=== PATIENT | male | born 1955 | race Caucasian/White ===

== ENCOUNTER → 2017-05-06 | Outpatient (CLI) | payer BC | END | disposition home or self-care (01) | LOC: LABPAT 16:41 | PROVIDERS: ATTEND Anesthesiology | DX: Z01.818 Encounter for other preprocedural examination (principal); R00.1 Bradycardia, unspecified | CPT/HCPCS: 36415; 86850; 86900; 86901; 93005 ==

== ENCOUNTER 2017-05-11 09:55 | Day surgery (SDC) | payer BC, OTHER ==
[2017-05-06 22:59] VITALS: BMI 27.1
[~2017-05-11 09:55] MED LIST: LACTATED RINGERS 1,000 ML IV SCH; LIDOCAINE 1% 20 ML VIAL (10MG/ML) FOR IV START INTRADERMA PRN
[2017-05-11] MEDS ORDERED: LIDOCAINE 1% 20 ML VIAL (10MG/ML) FOR IV START INTRADERMA ONE (10:15)
[2017-05-11 10:16] VITALS: TEMP 99.2
[2017-05-11] MEDS ORDERED: PROPOFOL 10 MG/ML 20 ML VIAL IV ONE (11:15)
--- NOTE | 2017-05-11 11:21 | P.GSHP ---
History of Present Illness H&P Date: 05/11/17 Chief Complaint: History of colon polyp This is a 61-year-old male referred from Dr. gresham. Patient is a safer colonoscopy. He's had a previous history of colon polyps. Past Medical History Past Medical History: Skin Disorder Additional Past Medical History / Comment(s): bleeding peptic ulcer, STATES BENIGN GROWTH IN COLON History of Any Multi-Drug Resistant Organisms: None Reported Past Surgical History: Cholecystectomy Additional Past Surgical History / Comment(s): colonoscopy, UPPER ENDOSCOPY WITH ULTRASOUND, RT COLECTOMY/HERNIA REPAIR Past Anesthesia/Blood Transfusion Reactions: No Reported Reaction Additional Past Anesthesia/Blood Transfusion Reaction / Comment(s): . Smoking Status: Never smoker - Past Family History Mother Family Medical History: Cancer Additional Family Medical History / Comment(s): CA: breast Father Family Medical History: Cancer Additional Family Medical History / Comment(s): CA: colon Medications and Allergies Home Medications Medication Instructions Recorded Confirmed Type [id number] [id number] 1 each PO Q4HR PRN 05/05/17 05/11/17 History [Excedrin] Allergies Allergy/AdvReac Type Severity Reaction Status Date / Time No Known Allergies Allergy Verified 05/05/17 10:03 Surgical - Exam Vital Signs Temp Pulse Resp BP Pulse Ox 99.2 F 79 16 154/91 96 05/11/17 10:15 05/11/17 10:15 05/11/17 10:15 05/11/17 10:15 05/11/17 10:15 - General well developed, no distress - Eyes PERRL - ENT normal pinna - Neck no masses - Respiratory normal expansion - Abdomen Abdomen: soft, non tender Assessment and Plan Assessment: History: Positive. We'll perform colonoscopy.
--- NOTE | 2017-05-11 11:33 | P.OP ---
Date of Procedure: 05/11/17 Preoperative Diagnosis: History of colon Polyps Postoperative Diagnosis: Transverse colon polyp Diverticulosis Procedure(s) Performed: colonoscopy Anesthesia: MAC Surgeon: Grayson Nuñez Pathology: other (Transverse colon polyp) Condition: stable Disposition: PACU Description of Procedure: The patient's placed on the endoscopy table in the lateral position. He received IV sedation. Digital rectal exam was performed which revealed no abnormalities. The flexible colonoscope was then placed patient anus and passed throughout the entire colon. The ileocecal valve was visualized. The cecum, ascending appeared normal. In the transverse colon was a small sessile polyp was removed with a cold forcep. Scope was then brought back to the descending colon and there was mild diverticular changes seen. There is mild diverticular changes seen in the sigmoid colon the scope was then brought back the rectum and this appeared normal. Scope was withdrawn for patient.
[2017-05-11 11:52] VITALS: BP 114/68; PULSE 63; RESP 16
== END 2017-05-11 12:19 | disposition home or self-care (01) ==
LOC: ORWHC2ENDO 09:55
PROVIDERS: ATTEND Surgery
DX: Z12.11 Encounter for screening for malignant neoplasm of colon (principal); K63.5 Polyp of colon; Z86.010 Personal history of colon polyps; Z90.49 Acquired absence of other specified parts of digestive tract
CPT/HCPCS: 88305; 45380; J2704

== ENCOUNTER 2017-05-13 10:08 | Day surgery (SDC) | payer BC, OTHER ==
[2017-05-06 23:00] VITALS: BMI 27.1
[~2017-05-13 10:08] MED LIST changes: +DEXAMETHASONE SOD PHOSPHATE 10 MG/ML 1 ML VIAL IV ONE; +HEPARIN SODIUM,PORCINE 5,000 UNIT/ML 1 ML VIAL SQ ONE; -LIDOCAINE 1% 20 ML VIAL (10MG/ML) FOR IV START INTRADERMA PRN; +MIDAZOLAM 2 MG/2 ML VIAL IV PRN; +ONDANSETRON 4 MG/2 ML VIAL IVP ONE; +ceFAZolin IN SWFI 2 GM/20 ML SYRINGE IVP ONE
[2017-05-13] MEDS ORDERED: LIDOCAINE 1% 20 ML VIAL (10MG/ML) FOR IV START INTRADERMA ONE (11:12)
--- NOTE | 2017-05-13 11:46 | P.GSHP ---
History of Present Illness H&P Date: 05/13/17 Chief Complaint: Incisional hernia This is a 61-year-old male who's had previous history of right colectomy. Patient presents today for laparoscopic robotic repair of incisional hernia. She has developed an incisional hernia at his midline incision. Past Medical History Past Medical History: Skin Disorder Additional Past Medical History / Comment(s): bleeding peptic ulcer, STATES BENIGN GROWTH IN COLON History of Any Multi-Drug Resistant Organisms: None Reported Past Surgical History: Cholecystectomy Additional Past Surgical History / Comment(s): colonoscopy, UPPER ENDOSCOPY WITH ULTRASOUND, RT COLECTOMY/HERNIA REPAIR Past Anesthesia/Blood Transfusion Reactions: No Reported Reaction Additional Past Anesthesia/Blood Transfusion Reaction / Comment(s): . Smoking Status: Never smoker - Past Family History Mother Family Medical History: Cancer Additional Family Medical History / Comment(s): CA: breast Father Family Medical History: Cancer Additional Family Medical History / Comment(s): CA: colon Medications and Allergies Home Medications Medication Instructions Recorded Confirmed Type [id number] 1 each PO Q4HR PRN 05/05/17 05/11/17 History [Excedrin] Allergies Allergy/AdvReac Type Severity Reaction Status Date / Time No Known Allergies Allergy Verified 05/05/17 10:03 Surgical - Exam Vital Signs Temp Pulse Resp BP Pulse Ox 98.6 F 76 16 142/91 97 05/13/17 11:04 05/13/17 11:04 05/13/17 11:04 05/13/17 11:04 05/13/17 11:04 - General well developed, no distress - Eyes PERRL - ENT normal pinna - Neck no masses - Respiratory normal expansion - Cardiovascular Rhythm: regular - Abdomen Abdomen: soft, non tender Hernia: incisional (Reducible, 5 cm) Assessment and Plan Assessment: Incisional hernia. We'll perform laparoscopic robotic-assisted repair.
[2017-05-13] MEDS ORDERED: fentaNYL (PF) 50 MCG/ML 2 ML AMP ONE (12:16)
[2017-05-13] MEDS ORDERED: GLYCOPYRROLATE 0.2 MG/ML 2 ML VIAL ONE (12:16)
[2017-05-13] MEDS ORDERED: ROCURONIUM BROMIDE 10 MG/ML 10 ML VIAL IV ONE (12:16)
[2017-05-13] MEDS ORDERED: MIDAZOLAM 2 MG/2 ML VIAL ONE (12:16)
[2017-05-13] MEDS ORDERED: ONDANSETRON 4 MG/2 ML VIAL ONE (12:16)
[2017-05-13] MEDS ORDERED: NEOSTIGMINE 1 MG/ML 10 ML VIAL ONE (12:16)
[2017-05-13] MEDS ORDERED: SUCCINYLCHOLINE CHLORIDE VIAL 200 MG/10 ML VIAL IV ONE (12:16)
[2017-05-13] MEDS ORDERED: ePHEDrine SULFATE/0.9% NACL/PF 50 MG/5 ML SYRINGE IV ONE (12:16)
[2017-05-13] MEDS ORDERED: PROPOFOL 10 MG/ML 20 ML VIAL IV ONE (12:16)
[2017-05-13] MEDS ORDERED: LIDOCAINE 1% INJ 10MG/ML (20 ML MDV) ONE (12:16)
[2017-05-13] MEDS ORDERED: HYDROmorphone (PF) 1 MG/ML ONE (12:16)
[2017-05-13] MEDS ORDERED: KETOROLAC 30 MG/ML 1 ML VIAL ONE (12:16)
[2017-05-13] MEDS ORDERED: BUPIVACAINE (PF) 0.25% 30 ML VIAL SQ ONE (12:56)
[2017-05-13 13:58] VITALS: TEMP 97.1
[2017-05-13] MEDS: HYDROmorphone 0.5 MG/0.5 ML SYRINGE IVP PRN ×2 (14:01→14:07)
--- NOTE | 2017-05-13 14:14 | P.OP ---
Date of Procedure: 05/13/17 Preoperative Diagnosis: Incisional hernia Postoperative Diagnosis: Incisional hernia Procedure(s) Performed: Laparoscopic robotic system repair of incisional hernia Anesthesia: SARAH Surgeon: Grayson Nuñez Estimated Blood Loss (ml): 5 Pathology: none sent Condition: stable Disposition: PACU Description of Procedure: Patient's placed on the endoscopy table in the lateral position. He received IV sedation. The patient received general anesthesia. His then placed on the operative table in the supine position. His abdomen was prepped and draped usual fashion. The patient incisional hernia located above the umbilicus. Next a 5 mm optical trocar was placed into the. Cavity in the left upper quadrant and then another 8 mm robotic trochars placed left lower quadrant and a 12 mm trocar was placed left lateral position the original 5 mm trocar was exchanged for an 8 mm robotic trocar. The patient's placed in the left side up position. Patient was undocked the robot. The hernia was visualized. The hernia was closed withoh strata fixed suture. the repair was then repaired lows with oh the lock suture. Next a 10 x 15 mesh was secured over top apparent secured with 2 OV lock suture. At this point it was noted that the fenestrated grasper was broken. The graspers removed. The piece the jaw was removed. The patient was undocked the robot. The needles were then withdrawn. And then the 12 mm trocar site was closed with 0 Ethibond suture. Skin was closed interrupted 3-0 Monocryl suture. Dermabond was applied. Patient tolerated the procedur well and sent to recovery room.
[2017-05-13 14:43] VITALS: RESP 16
[2017-05-13] MEDS ORDERED: HYDROcodone/APAP 7.5-325MG 1 EACH TAB PO ONE (15:10)
[2017-05-13 15:49] VITALS: BP 143/88; PULSE 84
== END 2017-05-13 17:34 | disposition home or self-care (01) ==
LOC: OR 10:08
PROVIDERS: ATTEND Surgery
DX: K43.2 Incisional hernia without obstruction or gangrene (principal); Z90.49 Acquired absence of other specified parts of digestive tract; Z87.11 Personal history of peptic ulcer disease; Z80.0 Family history of malignant neoplasm of digestive organs; Z79.82 Long term (current) use of aspirin
CPT/HCPCS: 49654; S2900; 36415; 86850; 86900; 86901

== ENCOUNTER 2021-02-21 07:53 | Day surgery (SDC) | payer BC ==
[2021-02-19 15:15] VITALS: BMI 27.5
[~2021-02-21 07:53] MED LIST changes: -DEXAMETHASONE SOD PHOSPHATE 10 MG/ML 1 ML VIAL IV ONE; -HEPARIN SODIUM,PORCINE 5,000 UNIT/ML 1 ML VIAL SQ ONE; +LIDOCAINE 1% (10MG/ML) FOR IV START INTRADERMA PRN; -MIDAZOLAM 2 MG/2 ML VIAL IV PRN; -ONDANSETRON 4 MG/2 ML VIAL IVP ONE; -ceFAZolin IN SWFI 2 GM/20 ML SYRINGE IVP ONE
[2021-02-21 08:21] VITALS: RESP 16; TEMP 96.8
[2021-02-21] MEDS ORDERED: GLYCOPYRROLATE 0.2 MG/ML 2 ML VIAL ONE (08:41)
[2021-02-21] MEDS ORDERED: PROPOFOL 10 MG/ML 20 ML VIAL IV ONE (08:41)
--- NOTE | 2021-02-21 08:43 | P.GSHP ---
History of Present Illness H&P Date: 02/21/21 Chief Complaint: History of colon polyps Is a 65-year-old male who presents today for colonoscopy. Patient's previous history of colon polyps. Past Medical History Past Medical History: Skin Disorder Additional Past Medical History / Comment(s): peptic ulcer, STATES BENIGN GROWTH IN COLON History of Any Multi-Drug Resistant Organisms: None Reported Past Surgical History: Appendectomy, Bowel Resection, Cholecystectomy Additional Past Surgical History / Comment(s): colonoscopy, UPPER ENDOSCOPY WITH ULTRASOUND, RT COLECTOMY,HERNIA REPAIR x2 Past Anesthesia/Blood Transfusion Reactions: No Reported Reaction Additional Past Anesthesia/Blood Transfusion Reaction / Comment(s): . Smoking Status: Never smoker - Past Family History Mother Family Medical History: Cancer Additional Family Medical History / Comment(s): CA: breast Father Family Medical History: Cancer Additional Family Medical History / Comment(s): CA: colon Medications and Allergies Home Medications Medication Instructions Recorded Confirmed Type Cetirizine HCl [Zyrtec] 10 mg PO Q2D PRN 12/24/20 02/19/21 History Allergies Allergy/AdvReac Type Severity Reaction Status Date / Time No Known Allergies Allergy Verified 02/21/21 08:17 Surgical - Exam Vital Signs Temp Pulse Resp BP Pulse Ox 96.8 F L 101 H 16 136/91 94 L 02/21/21 08:20 02/21/21 08:20 02/21/21 08:20 02/21/21 08:20 02/21/21 08:20 - General well developed, well nourished, no distress - Eyes PERRL - ENT normal pinna - Neck no masses - Respiratory normal expansion - Cardiovascular Rhythm: regular - Abdomen Abdomen: soft, non tender Assessment and Plan Assessment: History of colon polyps. We'll perform colonoscopy.
--- NOTE | 2021-02-21 09:16 | P.OP ---
Date of Procedure: 02/21/21 Preoperative Diagnosis: History of colonic Polyps Postoperative Diagnosis: Left colon polyp Right colon polyp Mild diverticulosis Procedure(s) Performed: Colonoscopy Anesthesia: MAC Surgeon: Grayson Nuñez Pathology: other (Right and left colon polyp) Condition: stable Disposition: PACU Description of Procedure: Patient's placed on the endoscopy table in the lateral position. He received IV sedation. Digital rectal exam was performed which revealed no abnormalities. The flexible colonoscope was then placed patient anus and passed throughout the entire colon. The ileocecal valve lesions. The cecum appeared normal. In the right colon was small sessile polyp was removed forcep. Scope was withdrawn remainder the ascending colon and transverse colon appeared normal. In the descending; was mild diverticulosis. In the left colon was another polyp seen this removed with the snare. The scope was brought back the rectum and this appeared normal. Scope was withdrawn for patient.
[2021-02-21 09:27] VITALS: BP 107/75; PULSE 83
== END 2021-02-21 10:04 | disposition home or self-care (01) ==
LOC: ORWHC2ENDO 07:53
PROVIDERS: ATTEND Surgery
DX: Z12.11 Encounter for screening for malignant neoplasm of colon (principal); D12.4 Benign neoplasm of descending colon; K57.30 Diverticulosis of large intestine without perforation or abscess without bleeding; Z87.11 Personal history of peptic ulcer disease; Z86.010 Personal history of colon polyps; Z90.49 Acquired absence of other specified parts of digestive tract; Z98.890 Other specified postprocedural states; Z80.3 Family history of malignant neoplasm of breast; Z80.0 Family history of malignant neoplasm of digestive organs; J30.2 Other seasonal allergic rhinitis
CPT/HCPCS: 88305; 45380; 45385; J2704